=== PATIENT | male | born 1970 ===

== ENCOUNTER 2017-08-08 08:02 | Emergency (ER) | payer MEDICAID ==
[2017-08-08 08:03] VITALS: BMI 31.5
[2017-08-08 08:08] VITALS: BP 136/80; PULSE 92; RESP 18; TEMP 98; O2SAT 96
--- NOTE | 2017-08-08 08:23 | C.PDOC ---
History Of Present Illness 47 y/o male presents to ED with complaints of sore throat associated with nasal congestion, productive cough, and subjective fever for the past 2 days. Notes taking Tylenol yesterday but did not take it today. Pt denies shortness of breath, chest pain, difficulty breathing, difficulty swallowing, or any other complaints at this time. Time Seen by Provider: 08/08/17 08:10 Chief Complaint (Nursing): Flu-like Symptoms History Per: Patient History/Exam Limitations: no limitations Onset/Duration Of Symptoms: Days (2) Current Symptoms Are (Timing): Still Present Location Of Pain: Throat Sick Contacts (Context): None Associated Symptoms: Sore Throat, Cough, Nasal Congestion. denies: Sputum, Neck Pain, Sinus Drainage, Myalgias Ear Symptoms: Bilateral: None Recent travel outside of the [place]: No Additional History Per: Patient Past Medical History Reviewed: Historical Data, Nursing Documentation, Vital Signs Vital Signs: Last Vital Signs Temp 98 F 08/08/17 08:05 Pulse 92 H 08/08/17 08:05 Resp 18 08/08/17 08:05 BP 136/80 08/08/17 08:05 Pulse Ox 96 08/08/17 08:34 - Medical History PMH: HTN, Hypercholesterolemia (Not on meds) Denies: Chronic Kidney Disease Surgical History: Appendectomy Family History: States: Unknown Family Hx - Social History Hx Alcohol Use: Yes Hx Substance Use: No - Immunization History Hx Tetanus Toxoid Vaccination: No Hx Influenza Vaccination: No Hx Pneumococcal Vaccination: No Review Of Systems Except As Marked, All Systems Reviewed And Found Negative. Constitutional: Positive for: Fever ENT: Positive for: Nose Congestion, Throat Pain. Negative for: Ear Pain, Nose Discharge Cardiovascular: Negative for: Chest Pain, Palpitations Respiratory: Positive for: Cough. Negative for: Shortness of Breath, Sputum Gastrointestinal: Negative for: Nausea, Vomiting, Abdominal Pain, Diarrhea Neurological: Negative for: Headache, Dizziness Physical Exam - Physical Exam Appears: Non-toxic, No Acute Distress Skin: Normal Color, Warm, Dry Head: Atraumatic, Normacephalic Eye(s): bilateral: Normal Inspection, EOMI Ear(s): Bilateral: Normal Nose: Other (nasal congestion) Oral Mucosa: Moist Tongue: Normal Appearing Lips: Normal Appearing Throat: Erythema, Exudate, No Drooling Neck: Normal ROM, Supple Chest: Symmetrical Cardiovascular: Rhythm Regular, No Murmur Respiratory: Normal Breath Sounds, No Rales, No Rhonchi, No Wheezing Extremity: Normal ROM Neurological/Psych: Oriented x3, Normal Speech ED Course And Treatment O2 Sat by Pulse Oximetry: 96 (RA) Pulse Ox Interpretation: Normal Progress Note: Patient is being discharged home with instructions to follow up with PMD in 1-2 days for further evaluation. Return to ED for worsening symptoms. Disposition - Disposition Referrals: Benjamin Banks, MAN[place], AUTHORIZATION NURSE [Advanced Practice Nurse] - Disposition: HOME/ ROUTINE Disposition Time: 08:21 Condition: STABLE Additional Instructions: Follow up with your primary doctor in 1-2 days. Return to ER if symptoms persist or worsen. Prescriptions: Amoxicillin 875 mg PO BID #14 tablet Guaifen/Dextromethorphan/PE [Mucinex Fast-Max Congest-Cough] 1 each PO Q6 #20 tablet Instructions: Tonsillitis (ED) Forms: [facility] (Romanian), Work Excuse - Clinical Impression Clinical Impression: Tonsillitis with exudate - PA / INTELLIGENCE CHIEF / Resident Statement MD/DO has reviewed & agrees with the documentation as recorded. - Scribe Statement The provider has reviewed the documentation as recorded by the Scribe Mynor Paz All medical record entries made by the Scribe were at my direction and personally dictated by me. I have reviewed the chart and agree that the record accurately reflects my personal performance of the history, physical exam, medical decision making, and the department course for this patient. I have also personally directed, reviewed, and agree with the discharge instructions and disposition.
== END 2017-08-08 08:38 | disposition home or self-care (01) ==
LOC: C.ER 08:02
DX: J03.90 Acute tonsillitis, unspecified (principal)

== ENCOUNTER 2017-09-17 08:38 | Emergency (ER) | payer MEDICAID ==
[2017-09-17 08:38] VITALS: BMI 31.5
--- NOTE | 2017-09-17 09:27 | C.PDOC ---
Time Seen by Provider: 09/17/17 09:03 Chief Complaint (Nursing): GI Problem Past Medical History Vital Signs: Last Vital Signs Temp 98.1 F 09/17/17 08:43 Pulse 78 09/17/17 08:43 Resp 20 09/17/17 08:43 BP 135/90 09/17/17 08:43 Pulse Ox 100 09/17/17 08:43 - Medical History PMH: HTN, Hypercholesterolemia (Not on meds) Denies: Chronic Kidney Disease Surgical History: Appendectomy Family History: States: Unknown Family Hx - Social History Hx Alcohol Use: Yes Hx Substance Use: No - Immunization History Hx Tetanus Toxoid Vaccination: No Hx Influenza Vaccination: Yes Hx Pneumococcal Vaccination: No ED Course And Treatment O2 Sat by Pulse Oximetry: 100 Disposition - Disposition
[2017-09-17] MEDS ORDERED: Sodium Chloride 0.9% 1,000 ML IV ONE (09:32)
--- NOTE | 2017-09-17 09:32 | C.PDOC ---
History Of Present Illness Patient is a 47 y/o male who presents to the ED with a complaint of vomiting and diarrhea for the past 5 days. Patient notes vomiting has lessened but diarrhea is persistent and watery; denies any blood in stool. Patient recently returned from the [place] on 09/07 from visiting family. Denies abdominal pain, CP, SOB, or fever. Patient admits to experiencing abdominal cramping and took medication for symptoms, but could not recall name; takes blood pressure medication regularly. No other physical complaints at this time. Time Seen by Provider: 09/17/17 09:03 Chief Complaint (Nursing): GI Problem History Per: Patient History/Exam Limitations: no limitations Onset/Duration Of Symptoms: Days (5 days) Current Symptoms Are (Timing): Still Present Quality Of Discomfort: Cramping Recent travel outside of the [place]: Yes (returned from [facility] on 09/07) Past Medical History Reviewed: Historical Data, Nursing Documentation, Vital Signs Vital Signs: Last Vital Signs Temp 98.1 F 09/17/17 08:43 Pulse 78 09/17/17 08:43 Resp 20 09/17/17 08:43 BP 135/90 09/17/17 08:43 Pulse Ox 100 09/17/17 11:33 - Medical History PMH: HTN, Hypercholesterolemia (Not on meds) Denies: Chronic Kidney Disease Surgical History: Appendectomy Family History: States: Unknown Family Hx - Social History Hx Alcohol Use: Yes Hx Substance Use: No - Immunization History Hx Tetanus Toxoid Vaccination: No Hx Influenza Vaccination: Yes Hx Pneumococcal Vaccination: No Review Of Systems Constitutional: Negative for: Fever Cardiovascular: Negative for: Chest Pain Respiratory: Negative for: Shortness of Breath Gastrointestinal: Positive for: Vomiting, Diarrhea, Other (abdominal cramping). Negative for: Abdominal Pain, Hematochezia Physical Exam - Physical Exam Appears: Well, Non-toxic, No Acute Distress Skin: Normal Color, Warm, Dry Head: Atraumatic, Normacephalic Oral Mucosa: Moist Chest: Symmetrical Cardiovascular: Rhythm Regular, No Murmur Respiratory: Normal Breath Sounds, No Rales, No Rhonchi, No Wheezing Gastrointestinal/Abdominal: Soft, No Tenderness, Other (negative pain to palpation) Additional Physical Exam Comments: Patient assessed and concluded as diarrhea. Benign physical exam. ED Course And Treatment - Laboratory Results Result Diagrams: 09/17/17 10:20 09/17/17 10:20 O2 Sat by Pulse Oximetry: 100 - Other Rad obstructive series X-Ray: Interpreted by Me, Viewed By Me Interpretation: nonspecific pattern Medical Decision Making Medical Decision Making: Obstructive series XR and blood work ordered. Lomotil and IV fluids administered. On reassessment, patient feels better despite white count at 14. Denies any pain ; abdomen still benign. Patient to be discharged home assessed as diarrhea. Disposition Counseled Patient/Family Regarding: Studies Performed, Diagnosis, Need For Followup, Rx Given - Disposition Referrals: [facility] [Outside] Disposition: HOME/ ROUTINE Disposition Time: 11:34 Condition: STABLE Additional Instructions: follow up with your doctor or medical clinic in 2 days call to make an appointment take medication as needed return to ER if symptoms worsens or progress Prescriptions: Atropine/Diphenoxylate [Lonox 0.025 MG-2.5 MG] 1 tab PO TID PRN #15 tab PRN Reason: Diarrhea Instructions: Acute Diarrhea (ED) Forms: [facility] (Uzbek), General Discharge Instructions - Clinical Impression Clinical Impression: Diarrhea - Scribe Statement The provider has reviewed the documentation as recorded by the Scribe Crystal Nam All medical record entries made by the Scribe were at my direction and personally dictated by me. I have reviewed the chart and agree that the record accurately reflects my personal performance of the history, physical exam, medical decision making, and the department course for this patient. I have also personally directed, reviewed, and agree with the discharge instructions and disposition.
[2017-09-17] MEDS ORDERED: Atropine-Diphenoxylate 0.025-2.5 mg Tab PO STA (09:33)
[2017-09-17] MEDS ORDERED: Sodium Chloride 0.9% 1,000 ML ONE (09:40)
[2017-09-17] MEDS ORDERED: Atropine-Diphenoxylate 0.025-2.5 mg Tab ONE (09:40)
[2017-09-17 10:25] LABS: BASO # 0.1 K/uL (0.0-0.2); BASO % 0.9 % (0.0-2.0); EOS # 0.2 K/uL (0.0-0.7); EOS % 1.1 % (0.0-4.0); HEMOGLOBIN 14.9 g/dL (12.0-18.0); LYMPH # 2.9 K/uL (1.0-4.3); LYMPH % 20.5 % (20.0-40.0); MEAN CELL VOLUME 89.3 fL (80.0-94.0); MEAN CORPUSCULAR HGB CONC 34.7 g/dL (33.0-37.0); MEAN PLATELET VOLUME 6.8 fL (7.2-11.7); MONO # 0.9 K/uL (0.0-0.8); MONO % 6.5 % (0.0-10.0); NEUT # 10.1 K/uL (1.8-7.0); RBC 4.79 Mil/uL (4.40-5.90); RED CELL DISTRIBUTION WIDTH 15.2 % (11.5-14.5); WHITE BLOOD COUNT 14.2 K/uL (4.8-10.8)
[2017-09-17 10:47] LABS: ALB/GLOB RATIO 1.1 (1.0-2.1); ALBUMIN 4.2 g/dL (3.5-5.0); ALT/SGPT 54 U/L (21-72); AST/SGOT 34 U/L (17-59); BLOOD UREA NITROGEN 8 mg/dL (9-20); CALCIUM 8.4 mg/dl (8.6-10.4); GFR AFRICAN-AMERICAN > 60; GFR NON-AFRICAN AMERICAN > 60; LIPASE 49 U/L (23-300)
[2017-09-17 12:00] VITALS: BP 122/70; PULSE 70; RESP 16; TEMP 98.2; O2SAT 99
--- NOTE | 2017-09-17 13:05 | RAD ---
PROCEDURE: Radiographs of the chest and abdomen (obstructive series) HISTORY: abd pain COMPARISON: No prior. TECHNIQUE: AP radiograph of the chest, with upright and supine radiographs of the abdomen. FINDINGS: CHEST: Lungs: Clear. Cardiovascular: Normal size heart. No pulmonary vascular congestion. Pleura: No pleural fluid. No pneumothorax. Other findings: None. ABDOMEN AND PELVIS: Bowel: Unremarkable bowel gas pattern. No evidence of mechanical obstruction. Free air: None. Bones: Unremarkable. Other findings: None. IMPRESSION: Mild constipation, otherwise unremarkable radiographs of chest and abdomen. No evidence of mechanical bowel obstruction.
== END 2017-09-17 11:59 | disposition home or self-care (01) ==
LOC: C.ER 08:38
DX: R19.7 Diarrhea, unspecified (principal)
CPT/HCPCS: 74022; 80053; 83690; 85025; 96360; 99285; J7040

== ENCOUNTER 2018-06-07 09:47 | Emergency (ER) | payer MEDICAID ==
[2018-06-07 09:47] VITALS: BMI 31.5
[2018-06-07 10:00] VITALS: TEMP 98.2
[2018-06-07] MEDS ORDERED: Lidocaine 5% Patch TD STA (10:24)
--- NOTE | 2018-06-07 10:25 | C.PDOC ---
History Of Present Illness 48 year old male with a history of hypertension presents to the ED for evaluation of pain to left anterior axillary line with SOB for the last 3 days. Reports pain when coughing, breathing, and moving. Notes taking acetaminophen for the pain with no improvement and works as a business database analyst. Compliant with medication for hypertension. Past surgeries include appendectomy at 1 years old. PMD is Benjamin Banks. Denies allergies to medications, trauma, fever, nausea, vomiting, diarrhea, nausea and any other associated symptoms. Time Seen by Provider: 06/07/18 10:12 Chief Complaint (Nursing): Chest Pain History Per: Patient History/Exam Limitations: no limitations Onset/Duration Of Symptoms: Days Current Symptoms Are (Timing): Still Present Quality: Sharp Past Medical History Reviewed: Historical Data, Nursing Documentation, Vital Signs Vital Signs: Last Vital Signs Temp 98.2 F 06/07/18 09:59 Pulse 71 06/07/18 09:59 Resp 16 06/07/18 09:59 BP 147/106 H 06/07/18 09:59 Pulse Ox 97 06/07/18 09:59 - Medical History PMH: HTN, Hypercholesterolemia (Not on meds) Denies: Chronic Kidney Disease Surgical History: Appendectomy Family History: States: Unknown Family Hx - Social History Hx Alcohol Use: Yes Hx Substance Use: No - Immunization History Hx Tetanus Toxoid Vaccination: No Hx Influenza Vaccination: Yes Hx Pneumococcal Vaccination: No Review Of Systems Except As Marked, All Systems Reviewed And Found Negative. Constitutional: Negative for: Fever, Chills Cardiovascular: Negative for: Chest Pain Respiratory: Positive for: Shortness of Breath, Other (pain when coughing, breathing, and moving.) Gastrointestinal: Negative for: Nausea, Vomiting, Diarrhea Musculoskeletal: Positive for: Other (left anterior axillary line pain) Physical Exam - Physical Exam Appears: Non-toxic, Other (obese) Skin: Normal Color, Warm, Dry Head: Atraumatic, Normacephalic Eye(s): bilateral: Normal Inspection Nose: Normal Oral Mucosa: Moist Neck: Normal ROM Chest: Symmetrical, No Deformity, Other (tenderness to palpation to the left anterior axillary line. tenderness to the intercostal muscles between ribs 10- 11. ) Respiratory: Decreased Breath Sounds (secondary to pain), No Rales, No Rhonchi, No Wheezing Gastrointestinal/Abdominal: Soft, No Tenderness, Distention, No Guarding Extremity: Normal ROM, No Pedal Edema (bilaterally), No Calf Tenderness (x4), Capillary Refill (less than 2 seconds), No Deformity Neurological/Psych: Oriented x3, Normal Speech, Normal Motor, Normal Sensation Gait: Steady ED Course And Treatment - Laboratory Results Result Diagrams: 06/07/18 11:18 06/07/18 11:18 ECG: Viewed By Me Interpretation Of ECG: Normal sinus rhythm. Normal ECG Rate From EC O2 Sat by Pulse Oximetry: 97 (RA) Pulse Ox Interpretation: Normal - Other Rad CXR X-Ray: Viewed By Me, Read By Radiologist Interpretation: FINDINGS: Examination limited by habitus. LUNGS: Left lower lobe consolidation and small effusion. No definite pneumothorax. Please note that chest x-ray has limited sensitivity for the detection of pulmonary masses. CARDIOVASCULAR: Heart size appears top normal. OSSEOUS STRUCTURES: No acute osseous abnormality is detected. VISUALIZED UPPER ABDOMEN: Unremarkable. OTH ER FINDINGS: None. IMPRESSION: Left lower lobe consolidation and small effusion. Medical Decision Making Medical Decision Making: Differentials: --Costochondritis --Pneumonia --Pneumothorax Plan: --EKG --CXR --Lidocain --Ibuprofen --Acetaminophen Patient is feeling better and is stable for discharge home. CXR, EKG, and blood work reviewed by me. CXR shows lower left lobe consolidation and small effusion. Prescribed azithromycin. Disposition Counseled Patient/Family Regarding: Studies Performed, Diagnosis, Need For Followup, Rx Given - Disposition Disposition Time: 12:49 Prescriptions: Azithromycin 1 tab PO DAILY #6 tab Ibuprofen [Motrin] 600 mg PO TID #15 tab Instructions: Pneumonia, Adult (DC) Forms: Gen Discharge Inst Lithuanian, [employer] [facility] (Lithuanian) - POA Present On Arrival: None - Clinical Impression Clinical Impression: Pleuritic chest pain, Pneumonia - Scribe Statement The provider has reviewed the documentation as recorded by the Scribe (Leeanne José) Provider Attestation: All medical record entries made by the Scribe were at my direction and personally dictated by me. I have reviewed the chart and agree that the record accurately reflects my personal performance of the history, physical exam, medical decision making, and the department course for this patient. I have also personally directed, reviewed, and agree with the discharge instructions and disposition.
[2018-06-07] MEDS ORDERED: Lidocaine 5% Patch TD ONE (11:14)
[2018-06-07 11:24] LABS: BASO # 0.1 K/uL (0.0-0.2); BASO % 1.2 % (0.0-2.0); EOS # 0.2 K/uL (0.0-0.7); EOS % 2.3 % (0.0-4.0); HEMOGLOBIN 14.7 g/dL (12.0-18.0); LYMPH # 3.2 K/uL (1.0-4.3); LYMPH % 35.8 % (20.0-40.0); MEAN CELL VOLUME 89.8 fL (80.0-94.0); MEAN CORPUSCULAR HEMOGLOBIN 31.2 pg (27.0-31.0); MEAN CORPUSCULAR HGB CONC 34.8 g/dL (33.0-37.0); MONO # 0.5 K/uL (0.0-0.8); MONO % 5.4 % (0.0-10.0); NEUT % 55.3 % (50.0-75.0); RBC 4.73 Mil/uL (4.40-5.90); RED CELL DISTRIBUTION WIDTH 13.9 % (11.5-14.5)
[2018-06-07 11:33] LABS: ALB/GLOB RATIO 1.4 (1.0-2.1); ALBUMIN 4.3 g/dL (3.5-5.0); ALT/SGPT 29 U/L (21-72); AST/SGOT 17 U/L (17-59); BLOOD UREA NITROGEN 12 mg/dL (9-20); CALCIUM 9.6 mg/dl (8.6-10.4); GFR NON-AFRICAN AMERICAN > 60
[2018-06-07 11:46] LABS: B-TYPE NATRIURETIC PEPTIDE 41.2 pg/mL (0-900)
[2018-06-07 11:52] VITALS: PULSE 56; RESP 18
--- NOTE | 2018-06-07 12:18 | RAD ---
HISTORY: left side pain with inspiration and cough COMPARISON: Lung betts included on CT abdomen and pelvis performed without contrast on 06/25/16 TECHNIQUE: Chest PA and lateral FINDINGS: Examination limited by habitus. LUNGS: Left lower lobe consolidation and small effusion. No definite pneumothorax. Please note that chest x-ray has limited sensitivity for the detection of pulmonary masses. CARDIOVASCULAR: Heart size appears top normal. OSSEOUS STRUCTURES: No acute osseous abnormality is detected. VISUALIZED UPPER ABDOMEN: Unremarkable. OTHER FINDINGS: None. IMPRESSION: Left lower lobe consolidation and small effusion.
[2018-06-07] MEDS ORDERED: Azithromycin 500mg/250ML NS 500 MG/250 ML BAG IVPB STA (12:42)
[2018-06-07] MEDS ORDERED: cefTRIAXone IV 1 gm in Dextros 50 ML IVPB ONE (12:42)
[2018-06-07 12:43] VITALS: BP 130/94
[2018-06-07 12:47] VITALS: O2SAT 97
[2018-06-07] MEDS ORDERED: Azithromycin 500mg/250ML NS 0 MG/0 ML BAG IVPB ONE (12:51)
[2018-06-07] MEDS ORDERED: cefTRIAXone 1 gm 1 GM/100 ML BAG IVPB ONE (12:51)
--- NOTE | 2018-06-08 11:51 | CARD ---
APPROVED REPORT Date of service: 06/07/2018 EKG Measurement Heart [id number] <Conclusion> Sinus bradycardia Otherwise normal ECG
--- NOTE | 2018-06-09 15:19 | CARD ---
APPROVED REPORT Date of service: 06/07/2018 EKG Measurement Heart [id number] RI [id number] <Conclusion> Normal sinus rhythm Normal ECG
== END 2018-06-07 13:25 | disposition home or self-care (01) ==
LOC: C.ER 09:47
DX: J18.9 Pneumonia, unspecified organism (principal); R07.81 Pleurodynia
CPT/HCPCS: 71046; 80053; 83880; 84484; 85025; 93005; 96374; 99284; J0696; J7050